=== PATIENT | female | born 1990 | race Caucasian/White ===

== ENCOUNTER 2022-03-01 07:30 | Inpatient (IN) | payer BC ==
[2022-02-28 15:47] LABS: Mean Corpuscular HGB CONC 34.4 g/dL (32.0-36.0); Mean Corpuscular Hemoglobin 32.4 pg (27.0-33.0); Mean Corpuscular Volume 94.3 fl (81.6-98.3); Mean Platelet Volume 10.7 fl (7.4-10.4); Platelet Count 269 10x3/uL (150-450); RBC Distribution Width 12.7 % (11.5-14.5); White Blood Cell (WBC) Count 10.2 10x3/uL (3.5-10.5)
[2022-02-28 16:18] LABS: Syphilis Antibody Nonreactive (Nonreactive); Syphilis Antibody Index 0.05 S/CO (<1.00 Non-Reactive)
[2022-02-28 16:19] LABS: HIV (1/2) Antibody/Antigen Non-Reactive (NonReactive); HIV 1/2 INDEX 0.08 S/CO (<1.00)
[2022-02-28 16:52] LABS: Hep B Surf Ag Non-Reactive S/CO (NonReactive)
[2022-02-28 16:53] LABS: HBSAg Index 0.13 S/CO (0-0.99)
[2022-02-28 23:46] LABS: SARS-CoV-2 PCR by NAA Not Detected (NotDetected)
[2022-03-01 10:55] VITALS: BMI 33.5
[2022-03-01] MEDS: Lactated Ringer's 1,000 ML IV SCH ×2 (11:05→11:53)
[2022-03-01] MEDS ORDERED: hydrALAZINE 20 MG/ML VIAL ONE (11:15)
[2022-03-01] MEDS ORDERED: Acetaminophen 500 MG TAB PO PRN (11:21)
[2022-03-01] MEDS ORDERED: Fentanyl 100 MCG/2 ML VIAL SLOW IVP PRN ×2 (11:21→13:26)
[2022-03-01] MEDS ORDERED: Ondansetron PF 4 MG/2 ML Vial IVP PRN ×2 (11:21→13:26)
[2022-03-01] MEDS ORDERED: hydrALAZINE 20 MG/ML VIAL SLOW IVP PRN ×2 (11:21→13:11)
[2022-03-01] MEDS ORDERED: Famotidine/PF 20 mg/2ml Vial SLOW IVP PRN (11:21)
[2022-03-01] MEDS ORDERED: Promethazine HCl 25 MG/ML VIAL IM PRN ×2 (11:21→13:26)
[2022-03-01] MEDS ORDERED: Bicitra 30 ML UDCUP PO PRN (11:21)
[2022-03-01] MEDS ORDERED: ceFAZolin 2 GM/Dextrose 50 ML 2 GM in Premix Bag 1 BAG IVPB SCH (11:30)
[2022-03-01] MEDS ORDERED: Labetalol HCl 100 MG/20 ML VIAL SLOW IVP PRN (11:30)
[2022-03-01] MEDS ORDERED: Labetalol HCl 100 MG/20 ML VIAL ONE (11:42)
[2022-03-01] MEDS ORDERED: Morphine PF 10 MG/10 ML VIAL ONE (12:12)
[2022-03-01] MEDS ORDERED: Fentanyl 100 MCG/2 ML VIAL ONE (12:12)
[2022-03-01] MEDS ORDERED: Oxytocin 10 UNITS/ML VIAL ONE ×2 (12:32→12:47)
[2022-03-01] MEDS ORDERED: PHENYLEPHRINE-NS 100 MCG/ML 10 ML SYRINGE ONE (12:32)
[2022-03-01] MEDS ORDERED: Ondansetron PF 4 MG/2 ML Vial ONE (12:38)
[2022-03-01] MEDS ORDERED: Dexamethasone 4 mg/ml Vial ONE (12:38)
[2022-03-01] MEDS ORDERED: Ketorolac Tromethamine 30 MG/ML VIAL ONE (13:01)
[2022-03-01] MEDS ORDERED: Lanolin Ointment 7 GM TUBE TOP PRN (13:11)
[2022-03-01] MEDS ORDERED: diphenhydrAMINE 25 MG CAP PO PRN (13:11)
[2022-03-01] MEDS ORDERED: Boostrix 0.5 ML (Tdap) VIAL IM ONE (13:11)
[2022-03-01] MEDS ORDERED: HYDROcodone/Acetaminophen 5/325 mg Tablet PO PRN ×2 (13:11)
[2022-03-01] MEDS ORDERED: Bisacodyl 10 MG SUPP PR PRN (13:11)
[2022-03-01] MEDS ORDERED: diphenhydrAMINE 50 MG/ML VIAL IVP PRN (13:26)
[2022-03-01] MEDS ORDERED: Meperidine HCl/PF 25 MG/ML VIAL SLOW IVP PRN (13:26)
[2022-03-01] MEDS ORDERED: Hydrocerin (Eucerin) Cream 120 gm Jar TOP PRN (13:26)
[2022-03-01] MEDS ORDERED: Ondansetron HCl/PF 4 MG/2 ML Vial IVP PRN (13:26)
[2022-03-01] MEDS ORDERED: Naloxone HCl 0.4 mg/ml Vial IV PRN (13:26)
[2022-03-01] MEDS ORDERED: Naloxone HCl 0.4 mg/ml Vial IVP PRN ×2 (13:26)
[2022-03-01] MEDS ORDERED: Promethazine HCl 25 MG SUPP PR PRN (13:26)
[2022-03-01] MEDS ORDERED: Communication Order-Pharmacy FS SCH (13:30)
[2022-03-01 14:01] LABS: ALT (SGPT) 18 U/L (8-55); AST (SGOT) 23 U/L (5-34); Albumin 3.2 g/dL (3.5-5.0); Alkaline Phosphatase 53 U/L (40-110); Anion Gap 12 mmol/L (10-20); BUN (Urea Nitrogen) 10 mg/dL (7.0-18.7); Bilirubin, Total 0.5 mg/dL (0.2-1.2); Calc. Creatinine Clearance 194 mL/min (70-130); Calcium 8.5 mg/dL (7.8-10.44); Carbon Dioxide 21 mmol/L (22-29); Chloride 107 mmol/L (98-107); Globulin 2.2 g/dL (2.4-3.5); Glucose 88 mg/dL (70-105); Potassium 3.7 mmol/L (3.5-5.1); Protein, Total 5.4 g/dL (6.0-8.3); Sodium 136 mmol/L (136-145)
[2022-03-01] MEDS: Ibuprofen 800 MG TAB PO SCH ×2 (17:45→22:13)
[2022-03-01] MEDS ORDERED: Ketorolac Tromethamine 30 MG/ML VIAL IVP PRN (18:47)
[2022-03-01] MEDS: Docusate 100 MG CAP PO SCH (22:14)
[2022-03-02] MEDS ORDERED: HYDROcodone/Acetaminophen 5/325 mg Tablet PO PRN ×2 (02:00)
[2022-03-02] MEDS: Ibuprofen 800 MG TAB PO SCH ×3 (04:30→21:35)
[2022-03-02 05:20] LABS: Hemoglobin 9.3 g/dL (12.0-15.5); Mean Corpuscular HGB CONC 34.1 g/dL (32.0-36.0); Mean Corpuscular Hemoglobin 32.4 pg (27.0-33.0); Mean Corpuscular Volume 95.1 fl (81.6-98.3); Mean Platelet Volume 10.5 fl (7.4-10.4); Platelet Count 216 10x3/uL (150-450); RBC Distribution Width 12.8 % (11.5-14.5); Red Blood Cell (RBC) Count 2.87 10x6/uL (3.90-5.03); White Blood Cell (WBC) Count 13.4 10x3/uL (3.5-10.5)
[2022-03-02] MEDS: Simethicone Chewable 80 MG TAB PO PRN ×3 (09:55→21:36)
[2022-03-02] MEDS: Prenatal Vitamin 1 TAB PO SCH (09:55)
[2022-03-02] MEDS: Docusate 100 MG CAP PO SCH ×2 (09:55→21:36)
[2022-03-03] MEDS: Ibuprofen 800 MG TAB PO SCH ×2 (05:20→21:23)
[2022-03-03] MEDS: Docusate 100 MG CAP PO SCH ×2 (09:00→21:23)
[2022-03-03] MEDS: Prenatal Vitamin 1 TAB PO SCH (09:00)
[2022-03-03] MEDS ORDERED: NIFEdipine 10 MG CAP ONE ×3 (13:56→14:54)
[2022-03-03] MEDS ORDERED: NIFEdipine 10 MG CAP PO SCH (14:30)
[2022-03-03] MEDS ORDERED: Ketorolac Tromethamine 30 MG/ML VIAL IVP SCH (15:00)
[2022-03-03] MEDS ORDERED: cloNIDine 0.1 MG TAB PO PRN ×2 (16:23→19:42)
[2022-03-03] MEDS: Acetaminophen 325 MG TAB PO PRN ×2 (16:24→21:24)
[2022-03-03] MEDS ORDERED: Labetalol HCl 100 MG TAB PO SCH (17:00)
[2022-03-04] MEDS: Ibuprofen 800 MG TAB PO SCH ×3 (04:25→21:16)
[2022-03-04] MEDS: Prenatal Vitamin 1 TAB PO SCH (07:57)
[2022-03-04] MEDS: Docusate 100 MG CAP PO SCH ×2 (07:57→21:15)
[2022-03-04] MEDS ORDERED: hydrALAZINE 20 MG/ML VIAL SLOW IVP SCH ×2 (09:00→17:15)
[2022-03-04] MEDS ORDERED: Labetalol HCl 100 MG TAB PO SCH ×3 (09:00→18:00)
[2022-03-04] MEDS ORDERED: NIFEdipine XL 30 MG TAB PO SCH (09:00)
[2022-03-04] MEDS: Acetaminophen 325 MG TAB PO PRN (11:39)
[2022-03-04] MEDS ORDERED: hydrALAZINE 20 MG/ML VIAL ONE (16:57)
[2022-03-04] MEDS ORDERED: Calcium Gluc 4.6 MEQ/10 ML (100 MG/ML) SLOW IVP PRN (17:46)
[2022-03-04] MEDS ORDERED: Magnesium Sulfate 20 gm/500 ml 20 GM/500 ML BAG IVPB SCH (18:00)
[2022-03-04] MEDS ORDERED: Magnesium Sulfate 20 GM/WATER 500 ML BAG IVPB SCH (18:00)
[2022-03-04 18:02] LABS: #Eosinphils 0.2 10x3/uL (0.0-0.5); #Monocytes 0.5 10x3/uL (0.0-1.1); #Neutrophils 9.7 10x3/uL (1.5-8.4); %Basophils 0.2 % (0.0-2.0); %Eosinophils 1.5 % (0.0-6.0); %Lymphocytes 14.7 % (18.0-47.0); %Monocytes 4.4 % (0.0-10.0); %Neutrophils 78.4 % (40.0-75.0); Hemoglobin 10.9 g/dL (12.0-15.5); Mean Corpuscular HGB CONC 33.7 g/dL (32.0-36.0); Mean Corpuscular Hemoglobin 32.4 pg (27.0-33.0); Mean Corpuscular Volume 96.1 fl (81.6-98.3); Mean Platelet Volume 9.4 fl (7.4-10.4); Platelet Count 313 10x3/uL (150-450); RBC Distribution Width 12.8 % (11.5-14.5); Red Blood Cell (RBC) Count 3.36 10x6/uL (3.90-5.03); White Blood Cell (WBC) Count 12.4 10x3/uL (3.5-10.5)
[2022-03-04 18:14] LABS: ALT (SGPT) 57 U/L (8-55); AST (SGOT) 53 U/L (5-34); Albumin 3.9 g/dL (3.5-5.0); Alkaline Phosphatase 50 U/L (40-110); Anion Gap 15 mmol/L (10-20); BUN (Urea Nitrogen) 9 mg/dL (7.0-18.7); Bilirubin, Total 0.6 mg/dL (0.2-1.2); Calc. Creatinine Clearance 179 mL/min (70-130); Calcium 9.6 mg/dL (7.8-10.44); Carbon Dioxide 21 mmol/L (22-29); Chloride 108 mmol/L (98-107); Globulin 2.7 g/dL (2.4-3.5); Glucose 101 mg/dL (70-105); Protein, Total 6.6 g/dL (6.0-8.3); Sodium 140 mmol/L (136-145)
[2022-03-04 19:42] LABS: Creatinine, Urine Less than 20.00 mg/dL (47-110); Protein, Urine Random Quant Less than 10 mg/dL (1-14)
[2022-03-04] MEDS ORDERED: hydrALAZINE 20 MG/ML VIAL SLOW IVP PRN (20:34)
[2022-03-05] MEDS: Simethicone Chewable 80 MG TAB PO PRN (01:10)
[2022-03-05] MEDS: Acetaminophen 325 MG TAB PO PRN ×3 (01:10→22:33)
[2022-03-05] MEDS ORDERED: Labetalol HCl 100 MG TAB PO SCH ×3 (01:45→21:45)
[2022-03-05] MEDS: Ibuprofen 800 MG TAB PO SCH ×2 (05:05→13:05)
[2022-03-05] MEDS: Prenatal Vitamin 1 TAB PO SCH (08:57)
[2022-03-05] MEDS: Docusate 100 MG CAP PO SCH (08:57)
[2022-03-05] MEDS: NIFEdipine XL 30 MG TAB PO SCH (08:58)
[2022-03-05] MEDS ORDERED: NIFEdipine XL 30 MG TAB PO SCH (09:00)
[2022-03-05] MEDS ORDERED: Polyethylene Glycol 3350 17 GM Packet PO PRN (14:22)
[2022-03-06] MEDS: Acetaminophen 325 MG TAB PO PRN (02:47)
[2022-03-06] MEDS: NIFEdipine XL 30 MG TAB PO SCH (07:54)
[2022-03-06] MEDS: Prenatal Vitamin 1 TAB PO SCH (07:54)
[2022-03-06] MEDS ORDERED: Labetalol HCl 100 MG TAB PO SCH ×2 (09:00)
[2022-03-06 11:13] VITALS: BP 139/75; TEMP 98.4
[2022-03-06] MEDS ORDERED: Labetalol HCl 200 MG TAB PO SCH (21:00)
== END 2022-03-06 15:50 | disposition home or self-care (01) | DRG 788 ==
LOC: CSHLD 10:01 → CSHPP 15:45 → CSHANTE 03-04 19:25
PROVIDERS: ADMIT Obstetrics & Gynecology; ATTEND Obstetrics & Gynecology
PROC: 10D00Z1 Extraction of Products of Conception, Low, Open Approach (ICD-10-PCS; principal; 2022-03-01)
DX: O34.211 Maternal care for low transverse scar from previous cesarean delivery (principal); Z3A.39 39 weeks gestation of pregnancy; Z37.0 Single live birth; Z20.822 Contact with and (suspected) exposure to COVID-19; N32.89 Other specified disorders of bladder; O99.892 Other specified diseases and conditions complicating childbirth; O13.5 Gestational [pregnancy-induced] hypertension without significant proteinuria, complicating the puerperium
CPT/HCPCS: 36415; 51702; 80053; 82570; 84156; 85025; 85027; 86780; 86850; 86900; 86901; 87340; 87389; J0360; J0690; J1100; J1885; J2274; J2405; J2590; J3010; J3475; J7120; S0028; U0003; U0005